=== PATIENT | male | born 1985 | race Caucasian/White ===

== ENCOUNTER 2017-11-17 11:03 | Emergency (ER) | payer MEDICAID, SELFPAY ==
[2017-11-17 11:44] VITALS: BP 176/98; PULSE 110; RESP 20; TEMP 36.6; O2SAT 97; BMI 31.5
--- NOTE | 2017-11-17 12:21 | HMH.EDUTC ---
[facility] [place] Clinical Impression: Viral upper respiratory illness Disposition: Home, Self-Care Condition on Discharge: Good Instructions: DI for Cough -- Adult Additional Instructions: * Monitor Temp. Tylenol and/or Ibuprofen as needed. ER if fever is no less than 101 despite alternating Tylenol and Ibuprofen * Encourage fluids, water, Gatorade, powerade, pedialyte if /toddler/or child * Warm salt water gargles for throat irritation *Warm fluids *Sore throat lozenges *Sleep elevated *humidifier or vaporizer Lots of rest Increase fluids, water, Gatorade, powerade *Flonase 2 sprays each nostril daily but may take 2-3 days to notice improvement with it * Follow up IMMEDIATELY for new or worsening of symptoms OR no noticeable improvement over the next 48-72 hours. 911 immediately for any life threatening symptoms such as chest pain or difficulty breathing Prescriptions: Dextromethorphan Polistirex [Delsym] 10 ml PO Q12H PRN #350 terri.er.12h PRN Reason: Cough Fluticasone Propionate [Flonase 50mcg nasal spray 16gm] 2 spr NS DAILY #1 bottle Loratadine [Claritin 10mg Tablet] 10 mg PO DAILY #30 tab Forms: Work/School Release Time of Disposition: 12:37 Medical Decision Making - Medical Records Medical records reviewed: Yes: I reviewed the patient's medical records. - Ihsan Inquiry Pt receiving controlled substance: No Ihsan was queried for this patient: No Vital Signs: 11/17/17 11:44 Temperature 97.9 F Temperature Source Temporal Artery Scan Pulse Rate [Right] 110 H Respiratory Rate 20 Blood Pressure [Right Arm] 176/98 Blood Pressure Mean [Right Arm] 124 Blood Pressure Source [Right Arm] Automatic Cuff 02 Sat by Pulse Oximetry 97 Oxygen Delivery Method Room Air - Lab Data Lab results reviewed: Yes: I reviewed the patient's lab results. [facility] [place] - General Stated complaint: Bad Cough,Stuffy Time Seen by Provider: 11/17/17 12:00 Mode of Arrival: Ambulatory Source of Information: Patient Limitations: No Limitations Description of Symptoms (Recalled from Triage Doc. by RN): COUGH, CONGESTION X5 DAYS HEENT Symptoms (Recalled from RN notes): Yes Resp Symptoms (Recalled from RN notes): No Skin Symptoms (Recalled from RN notes): No MS Symptoms (Recalled from RN notes): No Functional Status (Recalled from RN notes): N - History of Present Illness Provider Complaint: Patient states that he has been having cough, nasal congestion and sinus headache on and off for about 5 days State that throat is sore and irritated. Reports clear drainage from nose States that at times he has a headache/pressure like feeling on his right forehead area State that he has not had any fever and has not taken any over the counter medication for sore throat or sinuses State that he missed several doses of his blood pressure medication and just started back this morning - Related Data Previous Rx's Medication Instructions Recorded Dextromethorphan Polistirex 10 ml PO Q12H PRN #350 terri.er.12h 11/17/17 [Delsym] Fluticasone Propionate [Flonase 2 spr NS DAILY #1 bottle 11/17/17 50mcg nasal spray 16gm] Loratadine [Claritin 10mg Tablet] 10 mg PO DAILY #30 tab 11/17/17 Allergies Allergy/AdvReac Type Severity Reaction Status Date / Time erythromycin base Allergy Unknown Verified 11/17/17 11:47 [ERYTHROMYCIN BASE] - Worker's Comp Is this a Worker's Comp case?: No [facility] History I have reviewed the patient's past medical history: Yes - Social History Alcohol Intake: never - Psychiatric History Expresses thoughts of harming self/others: None Suicide Plan Description: No Plan ROS Obtained: Yes All systems reviewed & no additional complaints - Constitutional Constitutional: Denies fever(s) - ENT Ears, Nose, Mouth, and Throat: Reports nasal congestion, Reports sore throat - Respiratory Respiratory: Yes cough Physical Exam - General General appearance: alert, in no apparent distress
--- NOTE | 2017-11-17 12:32 | ED_ITS ---
[facility] – [place] Disposition Clinical Impression: Viral upper respiratory illness Disposition: Home, Self-Care Condition on Discharge: Good Instructions: DI for Cough -- Adult Additional Instructions: * Monitor Temp. Tylenol and/or Ibuprofen as needed. ER if fever is no less than 101 despite alternating Tylenol and Ibuprofen * Encourage fluids, water, Gatorade, powerade, pedialyte if /toddler/or child * Warm salt water gargles for throat irritation *Warm fluids *Sore throat lozenges *Sleep elevated *humidifier or vaporizer Lots of rest Increase fluids, water, Gatorade, powerade *Flonase 2 sprays each nostril daily but may take 2-3 days to notice improvement with it * Follow up IMMEDIATELY for new or worsening of symptoms OR no noticeable improvement over the next 48-72 hours. 911 immediately for any life threatening symptoms such as chest pain or difficulty breathing Prescriptions: Dextromethorphan Polistirex [Delsym] 10 ml PO Q12H PRN #350 terri.er.12h PRN Reason: Cough Fluticasone Propionate [Flonase 50mcg nasal spray 16gm] 2 spr NS DAILY #1 bottle Loratadine [Claritin 10mg Tablet] 10 mg PO DAILY #30 tab Forms: Work/School Release Time of Disposition: 12:37 Medical Decision Making - Medical Records Medical records reviewed: Yes: I reviewed the patient's medical records. - Ihsan Inquiry Pt receiving controlled substance: No Ihsan was queried for this patient: No Vital Signs: 11/17/17 11:44 Temperature 97.9 F Temperature Source Temporal Artery Scan Pulse Rate [Right] 110 H Respiratory Rate 20 Blood Pressure [Right Arm] 176/98 Blood Pressure Mean [Right Arm] 124 Blood Pressure Source [Right Arm] Automatic Cuff 02 Sat by Pulse Oximetry 97 Oxygen Delivery Method Room Air - Lab Data Lab results reviewed: Yes: I reviewed the patient's lab results. [facility] [place] HPI - General Stated complaint: Bad Cough,Stuffy Time Seen by Provider: 11/17/17 12:00 Mode of Arrival: Ambulatory Source of Information: Patient Limitations: No Limitations Description of Symptoms (Recalled from Triage Doc. by RN): COUGH, CONGESTION X5 DAYS HEENT Symptoms (Recalled from RN notes): Yes Resp Symptoms (Recalled from RN notes): No Skin Symptoms (Recalled from RN notes): No MS Symptoms (Recalled from RN notes): No Functional Status (Recalled from RN notes): N - History of Present Illness Provider Complaint: Patient states that he has been having cough, nasal congestion and sinus headache on and off for about 5 days State that throat is sore and irritated. Reports clear drainage from nose States that at times he has a headache/pressure like feeling on his right forehead area State that he has not had any fever and has not taken any over the counter medication for sore throat or sinuses State that he missed several doses of his blood pressure medication and just started back this morning - Related Data Previous Rx's Medication Instructions Recorded Dextromethorphan Polistirex 10 ml PO Q12H PRN #350 terri.er.12h 11/17/17 [Delsym] Fluticasone Propionate [Flonase 2 spr NS DAILY #1 bottle 11/17/17 50mcg nasal spray 16gm] Loratadine [Claritin 10mg Tablet] 10 mg PO DAILY #30 tab 11/17/17 Allergies Allergy/AdvReac Type Severity Reaction Status Date / Time erythromycin base Allergy Unknown Verified 11/17/17 11:47 [ERYTHROMYCIN BASE] - [place]
[2017-11-17 12:40] VITALS: BP 176/98; PULSE 90; RESP 20; TEMP 36.6
== END 2017-11-17 12:49 | disposition home or self-care (01) ==
PROVIDERS: Emergency Provider Nurse Practitioner; Family Provider Family Medicine
DX: J06.9 Acute upper respiratory infection, unspecified (principal); Z88.1 Allergy status to other antibiotic agents
CPT/HCPCS: 99201

== ENCOUNTER 2017-11-21 12:52 | Emergency (ER) | payer MEDICAID, SELFPAY ==
[2017-11-21 13:09] VITALS: BP 148/73; PULSE 86; RESP 20; TEMP 36.7; O2SAT 97; BMI 31.5
--- NOTE | 2017-11-21 13:43 | HMH.EDUTC ---
[facility] [place]: Acute bronchitis Qualifiers: Bronchitis organism: other organism Qualified Code(s): J20.8 - Acute bronchitis due to other specified organisms Disposition: Home, Self-Care Condition on Discharge: Good Instructions: DI for Acute Bronchitis Additional Instructions: * start antibiotic today. Be sure to complete entire prescription even if feeling better. * Monitor Temp. FU if fever develops * humidifier/vaporizer/hot steamy shower * Inhaler every 4-6 hours as needed like we discussed. If unsure how to use it, ask pharmacist to demonstrate how. Should help open airways and improve cough, wheezing, shortness of breath. * Mucinex during the day for your cough and cough suppressant only at night. Be sure to drink lots of water. Insurance may not cover a prescription of mucinex. Might be cheaper to get 400mg tablets and take 2 tablets morning, midday and evening all with lots of water. * You can use the previously prescribed cough syrup at night. * Start steroid today. Helps with inflammation therefore, cough and wheezing. Follow directions on package. Rvwd side effects. Pt reports they have taken them before. Prescriptions: Albuterol Sulfate [Albuterol HFA Inhaler] 1 - 2 puffs IH Q4-6H PRN #1 inh PRN Reason: Shortness Of Breath Or Wheezing Amoxicillin [Amoxicillin 875MG Tab] 875 mg PO Q12H #20 tab predniSONE [Deltasone 10mg tablet] 10 mg PO DAILY #5 tab Referrals: Francisco Lr MD [Primary Care Provider] - (Follow up IMMEDIATELY for new or worsening symptoms OR no noticeable improvement over the next 72 hours. 911 for difficulty breathing.) Time of Disposition: 13:55 Medical Decision Making - Medical Records Medical records reviewed: Yes: I reviewed the patient's medical records. MR Comment: prior visit last week - Ihsan Inquiry Pt receiving controlled substance: No Vital Signs: 11/21/17 13:09 11/21/17 13:58 Temperature 98.1 F 98.1 F Temperature Source Oral Oral Pulse Rate 80 Pulse Rate [Right Brachial] 86 Respiratory Rate 20 18 Blood Pressure 138/70 Blood Pressure [Right Arm] 148/73 Blood Pressure Mean [Right Arm] 98 Blood Pressure Source Automatic Cuff Blood Pressure Source [Right Arm] Automatic Cuff Blood Pressure Position Sitting Blood Pressure Position [Right Arm] Sitting 02 Sat by Pulse Oximetry 97 Oxygen Delivery Method Room Air Room Air [facility] [place] - General Stated complaint: Cough; Time Seen by Provider: 11/21/17 13:43 Mode of Arrival: Family Vehicle Source of Information: Patient Limitations: No Limitations Description of Symptoms (Recalled from Triage Doc. by RN): c/o COUGH SINCE THRUSDAY AND WAS SEEN HERE IN [facility] HEENT Symptoms (Recalled from RN notes): Yes Resp Symptoms (Recalled from RN notes): Yes Skin Symptoms (Recalled from RN notes): No MS Symptoms (Recalled from RN notes): No Functional Status (Recalled from RN notes): N/A - History of Present Illness Provider Complaint: c/o persisting cough. Worse now w/ laughing, exertion, deep breaths. Started around 9 days ago w/ head symptoms . moved into chest and was seen here 5 days ago. Dx URI. PRescribed claritin, delsym and flonase. No better. Cough nonprod. Denies SOA. Mild intermittent wheezing, worse at night. No fevers. Nonsmoker. No known sick contacts. - Related Data Previous Rx's Medication Instructions Recorded Dextromethorphan Polistirex 10 ml PO Q12H PRN #350 terri.er.12h 11/17/17 [Delsym] Fluticasone Propionate [Flonase 2 spr NS DAILY #1 bottle 11/17/17 50mcg nasal spray 16gm] Loratadine [Claritin 10mg Tablet] 10 mg PO DAILY #30 tab 11/17/17 Albuterol Sulfate [Albuterol HFA 1 - 2 puffs IH Q4-6H PRN #1 inh 11/21/17 Inhaler] Amoxicillin [Amoxicillin 875MG Tab] 875 mg PO Q12H #20 tab 11/21/17 predniSONE [Deltasone 10mg tablet] 10 mg PO DAILY #5 tab 11/21/17 Allergies Allergy/AdvReac Type Severity Reaction Status Date / Time erythromycin base Allergy Unknown V
[2017-11-21 13:58] VITALS: BP 138/70; PULSE 80; RESP 18; TEMP 36.7; O2SAT 98
== END 2017-11-21 13:59 | disposition home or self-care (01) ==
PROVIDERS: Emergency Provider Nurse Practitioner Family; Family Provider Family Medicine; PCP Emergency Medicine
DX: J20.8 Acute bronchitis due to other specified organisms (principal); E78.5 Hyperlipidemia, unspecified; I10 Essential (primary) hypertension; F17.210 Nicotine dependence, cigarettes, uncomplicated
CPT/HCPCS: 99201

== ENCOUNTER → 2018-01-06 10:08 | Outpatient (REF) | payer MEDICAID, SELFPAY ==
[2018-01-06 13:26] LABS: Basophils # 0.1 K/mm3 (0-0.2); Basophils % 0.8 % (0.1-2.0); Eosinophils # 0.1 K/mm3 (0.0-0.4); Eosinophils % 0.9 % (0.1-12.0); Hematocrit 48.2 % (42.0-52.0); Hemoglobin 16.7 g/dL (14.1-18.0); Lymphocytes # 2.3 K/mm3 (0.7-4.5); Lymphocytes % 34.5 K/mm3 (10-50); Mean Corpuscular HGB Conc 34.6 g/dL (31.8-35.4); Mean Corpuscular Hemoglobin 32.3 pg (27.0-31.2); Mean Corpuscular Volume 93.2 fl (80-94); Mean Platelet Volume 7.5 fl (7.4-10.4); Monocytes # 0.3 K/mm3 (0.1-1.0); Monocytes % 4.6 % (1.7-9.3); Neutrophils # 3.9 K/mm3 (1.8-7.8); Neutrophils % 59.2 % (37.0-80.0); Platelet Count 292 K/mm3 (142-424); Red Blood Count 5.18 M/mm3 (4.60-6.20); Red Cell Distribution Width 13.1 % (11.5-17.5); White Blood Count 6.6 K/mm3 (4.8-10.8)
[2018-01-06 13:41] LABS: Alanine Aminotransferase 65 U/L (12-78); Albumin Level 4.3 gm/dL (3.4-5.0); Alkaline Phosphatase 116 U/L (46-116); Anion Gap 13.4 mEq/L (5-15); Bilirubin,Total 0.3 mg/dL (0.2-1.0); Blood Urea Nitrogen 12 mg/dL (7-18); Calcium 9.4 mg/dL (8.5-10.1); Carbon Dioxide 27 mmol/L (21.0-32.0); Chloride 100 mmol/L (98-107); Chol/HDL Ratio 9.1 (1-3.5); Cholesterol 308 mg/dL (140-200); Creatinine,Serum 1.03 mg/dL (0.70-1.30); Estimated Glomerular Filt Rate 85 ml/min (>60); Free T4 (Free Thyroxine) 0.83 ng/dl (0.76-1.46); GFR (African American) 103 ML/MIN (>60); Globulin 4.5 gm/dl (1.3-3.2); HDL Cholesterol 34 mg/dL (27-67); Potassium 4.4 mmoL/L (3.5-5.1); Sodium 136 mmol/L (136-145); Thyroid Stimulating Hormone 2.35 uIU/ml (0.358-3.740); Total Protein,Serum 8.8 gm/dL (6.4-8.2)
[2018-01-06 14:57] LABS: Aspartate Amino Transferase 45 U/L (15-37); Triglycerides 562 mg/dL (30-200)
[2018-01-06 14:58] LABS: Glucose 122 mg/dL (74-106)
[2018-01-09 06:11] LABS: Vitamin D 25 Hydroxy 20.5 ng/mL (30.0-100.0)
== END ==
LOC: LAB 10:08
PROVIDERS: Visit Provider Emergency Medicine
DX: R53.83 Other fatigue (principal); R09.81 Nasal congestion
CPT/HCPCS: 80053; 80061; 82652; 84439; 84443; 85025

== ENCOUNTER → 2018-01-18 12:58 | Outpatient (CLI) | payer MEDICAID, SELFPAY | PROVIDERS: PCP Emergency Medicine; Visit Provider Emergency Medicine | DX: G47.33 Obstructive sleep apnea (adult) (pediatric) (principal) | CPT/HCPCS: 95806 ==

== ENCOUNTER → 2018-02-06 10:03 | Outpatient (CLI) | payer MEDICAID, SELFPAY ==
--- NOTE | 2018-02-06 10:04 | CA_ITS ---
PROCEDURE: 2-D M-mode and color Doppler study INDICATIONS FOR THE TEST: Chest pain COPD Heart Murmur Tobacco SmokingDIP Palpitations Fatigue Syncope EdemaX HypertensionXDiabetes Mellitus Rheumatic Fever SOB MAIN ObesityXHyperlipidemiaX Family History HD Additional History MARITO PATIENT INFORMATION HEIGHT: 71 WEIGHT:225 GENDER: Male B/P:163/100 2-D/M-MODE INTERPRETATION: 2-D MEASUREMENTS OBSERVED VALUES IN CMS Right Ventricular Dimension (RVDd) 2.5 Interventricular Septum (Thickness)(IVsd) .9 Left Ventricular Internal Dimensions(LVIDd) 5.1 Left Ventricular Posterior Wall (Thickness)(LVPWd) .9 Aortic Root 3.1 Aortic Cusp Separation 2.1 Left Atrial Dimensions (LAD) 3.5 2D 1. Left atrium is normal size, left ventricle is normal size, there is no concentric left ventricular hypertrophy, visually estimated ejection fraction 55% with no obvious regional wall motion abnormality. 2. The right atrium and right ventricle are normal size and contractility. 3. The aortic, mitral and tricuspid valve are grossly normal. 4. The pulmonic valve is poorly visualized. 5. No significant pericardial effusion noted. DOPPLER INTERROGATION: Doppler interrogation of the aortic, mitral and tricuspid valvular presence of mild mitral and tricuspid regurgitation, tricuspid and jet velocity is insufficient for calculation of the right ventricular systolic pressure, diastolic parameters are within normal range. CONCLUSION: 1. Normal left ventricular size, preserved left ventricular systolic function, visually estimated ejection fraction 55% with no obvious regional wall motion abnormality, diastolic parameters are within normal range. 2. Mild mitral and tricuspid regurgitation 3. No significant pericardial effusion noted.
== END ==
PROVIDERS: Family Provider Family Medicine; PCP Emergency Medicine; Visit Provider Internal Medicine Cardiovascular Disease
DX: I10 Essential (primary) hypertension (principal); E78.5 Hyperlipidemia, unspecified; E55.9 Vitamin D deficiency, unspecified; F17.200 Nicotine dependence, unspecified, uncomplicated; G47.33 Obstructive sleep apnea (adult) (pediatric)
CPT/HCPCS: 93306

== ENCOUNTER → 2019-09-13 16:16 | Outpatient (CLI) | payer MEDICAID, SELFPAY ==
[2019-09-13 16:30] LABS: Basophils # 0.1 K/mm3 (0-0.2); Basophils % 0.8 % (0.1-2.0); Eosinophils # 0.1 K/mm3 (0.0-0.4); Eosinophils % 1.7 % (0.1-12.0); Hematocrit 47.1 % (42.0-52.0); Hemoglobin 15.9 g/dL (14.1-18.0); Lymphocytes # 2.5 K/mm3 (0.7-4.5); Lymphocytes % 31.3 % (10-50); Mean Corpuscular HGB Conc 33.9 g/dL (31.8-35.4); Mean Corpuscular Hemoglobin 31.2 pg (27.0-31.2); Mean Platelet Volume 7.5 fl (7.4-10.4); Monocytes # 0.5 K/mm3 (0.1-1.0); Monocytes % 5.7 % (1.7-9.3); Neutrophils # 4.8 K/mm3 (1.8-7.8); Neutrophils % 60.5 % (37.0-80.0); Platelet Count 322 K/mm3 (142-424); Red Blood Count 5.11 M/mm3 (4.60-6.20); Red Cell Distribution Width 12.8 % (11.5-17.5); White Blood Count 7.9 K/mm3 (4.8-10.8)
--- NOTE | 2019-09-13 16:34 | ECG_ITS ---
APPROVED REPORT Exam: Resting ECG HR:87 bpm ECG Measurements Heart Rate 87 AXES DE 142 P 25 QRSd 78 QRS 4 QT 362 T 7 QTc 435 <Conclusion> Normal sinus rhythm with sinus arrhythmia Normal ECG Electronically signed by : Jacob Alford, 09/15/2019 19:09:40
[2019-09-13 17:07] LABS: Alanine Aminotransferase 104 U/L (12-78); Albumin Level 4.2 gm/dL (3.4-5.0); Anion Gap 11.9 mEq/L (5-15); Aspartate Amino Transferase 48 U/L (15-37); Bilirubin,Total 0.4 mg/dL (0.2-1.0); Blood Urea Nitrogen 13 mg/dL (7-18); Carbon Dioxide 29 mmol/L (21.0-32.0); Chloride 100 mmol/L (98-107); Creatinine,Serum 1.03 mg/dL (0.70-1.30); Estimated Glomerular Filt Rate 84 ml/min (>60); GFR (African American) 101 ML/MIN (>60); Globulin 3.8 gm/dl (1.3-3.2); Glucose 93 mg/dL (74-106); Potassium 3.9 mmoL/L (3.5-5.1); Sodium 137 mmol/L (136-145)
[2019-09-13 17:08] LABS: Albumin/Globulin Ratio 1.1 (1.1-1.8); Alkaline Phosphatase 98 U/L (46-116)
== END ==
PROVIDERS: Visit Provider Otolaryngology
DX: Z01.818 Encounter for other preprocedural examination (principal); H65.93 Unspecified nonsuppurative otitis media, bilateral; H66.001 Acute suppurative otitis media without spontaneous rupture of ear drum, right ear; H91.93 Unspecified hearing loss, bilateral
CPT/HCPCS: 36415; 80053; 85025; 93005

== ENCOUNTER 2020-12-06 13:19 | Emergency (ER) | payer OTHER, SELFPAY ==
[2020-12-06 13:36] VITALS: BP 149/82; PULSE 86; RESP 18; TEMP 37; O2SAT 100; BMI 34.0
--- NOTE | 2020-12-06 13:52 | HMH.EDUTC ---
[facility] [place]ression: Low back pain Qualifiers: Chronicity: acute Back pain laterality: left Sciatica presence: with sciatica Sciatica laterality: sciatica of left side Qualified Code(s): M54.42 - Lumbago with sciatica, left side Disposition: Home, Self-Care Condition on Discharge: Good Instructions: Exercise May Reduce Risk of Low Back Pain, DI for Low Back Pain Additional Instructions: follow up with pcp if no improvement tylenol or motrin for pain Prescriptions: predniSONE [Prednisone 20mg Tab] 20 mg PO BID #10 tab Prescription Printed Referrals: Francisco Lr MD [Primary Care Provider] - Time of Disposition: 13:57 Medical Decision Making - Ihsan Inquiry Pt receiving controlled substance: No Vital Signs: 12/06/20 13:36 Temperature 98.6 F Temperature Source Oral Pulse Rate [Right Brachial] 86 Respiratory Rate 18 Blood Pressure [Right Arm] 149/82 H Blood Pressure Mean [Right Arm] 104 Blood Pressure Source [Right Arm] Automatic Cuff Blood Pressure Position [Right Arm] Sitting 02 Sat by Pulse Oximetry 100 Oxygen Delivery Method Room Air [facility] [place] General Chief complaint: [facility] Stated complaint: Lt knee tingling/numbness Time Seen by Provider: 12/06/20 13:52 Mode of Arrival: Ambulatory Source of Information: Patient Limitations: No Limitations Description of Symptoms (Recalled from Triage Doc. by RN): PATIENT C/O TINGLING, NUMBNESS, AND BURNING IN LEFT THIGH X 1 MONTH HEENT Symptoms (Recalled from RN notes): No Resp Symptoms (Recalled from RN notes): No Skin Symptoms (Recalled from RN notes): No MS Symptoms (Recalled from RN notes): Yes Functional Status (Recalled from RN notes): WNL - History of Present Illness Provider Complaint: 35 yr old male presents for low back pain with numbness and pain radiating down let leg. pt states it started over 1 month ago but has become worse since transfering to a new department at work recently. no issues with b/b - Related Data Home Medications Medication Instructions Recorded Confirmed lisinopriL [Lisinopril] 10 mg PO DAILY 12/06/20 12/06/20 Previous Rx's Medication Instructions Recorded predniSONE [Prednisone 20mg 20 mg PO BID #10 tab 12/06/20 Tab] Allergies Allergy/AdvReac Type Severity Reaction Status Date / Time erythromycin base Allergy Unknown Verified 08/19/20 15:22 [ERYTHROMYCIN BASE] - Worker's Comp Is this a Worker's Comp case?: No [facility] History - Hepatitis A Screen Drug use history?: No High risk sexual behaviors?: No History of sexually transmitted infection?: No Currently employed?: No Childcare worker?: No Do you have indoor plumbing?: Yes Do you have electricity?: Yes Attestation statement:: This patient has been screened for Hepatitis A risk factors. I have reviewed the patient's past medical history: Yes Medical History: Reports:: Hyperlipidemia, Hypertension Denies:: Cancer, Chronic Obstructive Pulmonary Disease (COPD), Diabetes Mellitus Type 1, Diabetes Mellitus Type 2, Internal Pacemaker, MRSA, Seizures Other Medical History: Reports: Other. Denies: Blood Transfusion Reaction Comment: HYPERTENSION. HYPERLIPIDEMIA. SLEEP APNEA Laterality Cases: Bilateral: Myringotomy (Ear Tubes) Other Surgeries: Yes: No Previous Surgery, Appendectomy. No: Pacemaker Amputation: No Fractures: Yes (rt middle finger) Comment: EAR TUBES IN BOTH EARS, EAR WAX REMOVAL---09/27/19 - Social History Smoking Status: Never smoker Tobacco Type: smokeless tobacco # Packs/Day (cigarettes): 0 Alcohol Intake: never Alcohol Intake Frequency:: a few times a month Substance Use Type: denies use Occupational Status: other Housing: house Household Members: spouse, family Family Hx:: No significant family history ROS Obtained: Yes Systems reviewed as appropriate & no additional complaints - Constitutional Constitutional: Reports system reviewed and no additional complaints, e
[2020-12-06 13:58] VITALS: BP 149/82; PULSE 86; RESP 18; TEMP 37; O2SAT 100
== END 2020-12-06 14:02 | disposition home or self-care (01) ==
PROVIDERS: Emergency Provider Nurse Practitioner Family; PCP Emergency Medicine
DX: M54.42 Lumbago with sciatica, left side (principal); I10 Essential (primary) hypertension; E78.5 Hyperlipidemia, unspecified; Z79.899 Other long term (current) drug therapy
CPT/HCPCS: 99202; G0463

== ENCOUNTER → 2021-08-20 12:46 | Outpatient (CLI) | payer OTHER, SELFPAY | PROVIDERS: Visit Provider Nurse Practitioner | DX: U07.1 COVID-19 (principal) | CPT/HCPCS: C9803; U0003; U0005 ==

== ENCOUNTER 2021-08-23 10:45 | Emergency (ER) | payer OTHER, SELFPAY ==
[2021-08-23 11:37] VITALS: BP 179/105; PULSE 82; RESP 18; TEMP 36.8; O2SAT 96; BMI 34.2
--- NOTE | 2021-08-23 11:49 | HMH.EDUTC ---
[facility] [place] Clinical Impression: COVID-19 Right otitis media Qualifiers: Otitis media type: suppurative Chronicity: acute Recurrence: non-recurrent Spontaneous tympanic membrane rupture: without spontaneous rupture Qualified Code(s): H66.001 - Acute suppurative otitis media without spontaneous rupture of ear drum, right ear Disposition: Home, Self-Care Condition on Discharge: Good Instructions: Middle Ear Infection, DI for COVID-19 (Suspected or Confirmed ), Preventing the Spread of Coronavirus Discharge Instructions Additional Instructions: Drink plenty of fluids. Take tylenol or ibuprofen for pain or fever. Take the medications as directed. Follow up with your regular doctor. GO TO THE ER FOR ANY WORSENING SYMPTOMS With your history of high blood pressure, don't take the pseudoephedrine or any other decongestant for more than 1 to 2 days. These medications would help your ear pain, but cause your blood pressure to go up. Don't mess up and take any other products with pseudoephedrine in them if you take the pseudoephedrine that we prescribed. Don't start the oral steroids until tomorrow, since you had the shot here today. Prescriptions: Pseudoephedrine HCl 30 mg PO Q6HP PRN #30 tab PRN Reason: Congestion Transmission Status: Received by [id number] Amoxicillin/Potassium Clav [Augmentin 875-125 Tablet] 1 tab PO Q12H 10 Days #20 tab Transmission Status: Received by [id number] methylPREDNISolone [Medrol] 4 mg PO DIRECTED 6 Days #21 packet Transmission Status: Received by [id number] Referrals: Francisco Lr MD [Primary Care Provider] - Time of Disposition: 12:30 Medical Decision Making - Medical Records Medical records reviewed: No: I reviewed the patient's medical records. - Ihsan Inquiry Pt receiving controlled substance: No Vital Signs: 08/23/21 11:37 08/23/21 12:33 Temperature 98.3 F 98.3 F Temperature Source Oral Pulse Rate 82 Pulse Rate [Left] 82 Respiratory Rate 18 18 Blood Pressure 179/105 H Blood Pressure [Right Arm] 179/105 H Blood Pressure Mean [Right Arm] 129 02 Sat by Pulse Oximetry 96 Orders (Tests/Meds): ED MEDICATIONS Discontinued Medications Generic Name Dose Route Start Last Admin Trade Name Freq PRN Reason Stop Dose Admin Methylprednisolone Sodium Succinate 125 mg 08/23/21 12:26 08/23/21 12:44 Methylprednisolone Sod Succ 125mg Vial IM 08/23/21 12:27 125 mg ONCE ONE Administration [facility] [place] HPI - General Stated complaint: cough, right ear pain Time Seen by Provider: 08/23/21 11:50 Mode of Arrival: Ambulatory Source of Information: Patient Limitations: No Limitations Description of Symptoms (Recalled from Triage Doc. by RN): pt c/o a R ear ache. HEENT Symptoms (Recalled from RN notes): Yes (R ear ache) Resp Symptoms (Recalled from RN notes): No Skin Symptoms (Recalled from RN notes): No MS Symptoms (Recalled from RN notes): No Functional Status (Recalled from RN notes): wnl - History of Present Illness Provider Complaint: He was diagnosed with covid-19 3 days ago. He states that is breathing is doing good other than coughing a lot. But he is having severe right ear pain. He has a history of getting ear infections frequently. He has t-tubes because of this, but he thinks that his right one is no in place any more. His left ear hurts, but not near as bad as his right. - Related Data Previous Rx's Medication Instructions Recorded predniSONE [Prednisone 20mg 20 mg PO BID #10 tab 12/06/20 Tab] lisinopril 10 mg tablet See Rx Instructions .ROUTE 04/10/21 .COMPLEX #90 tablet Amoxicillin/Potassium Clav 1 tab PO Q12H 10 Days #20 tab 08/23/21 [Augmentin 875-125 Tablet] Pseudoephedrine HCl 30 mg PO Q6HP PRN #30 tab 08/23/21 methylPREDNISolone [Medrol] 4 mg PO DIRECTED 6 Days #21 08/23/21 packet Allergies Allergy/AdvReac Type Severity Reaction Status Date / Time e
[2021-08-23 12:33] VITALS: BP 179/105; PULSE 82; RESP 18; TEMP 36.8
== END 2021-08-23 12:45 | disposition home or self-care (01) ==
PROVIDERS: Emergency Provider Nurse Practitioner Family; PCP Emergency Medicine
DX: U07.1 COVID-19 (principal); H66.001 Acute suppurative otitis media without spontaneous rupture of ear drum, right ear; E78.5 Hyperlipidemia, unspecified; I10 Essential (primary) hypertension
CPT/HCPCS: 96372; 99202; G0463

== ENCOUNTER 2021-11-10 10:31 | Emergency (ER) | payer OTHER, SELFPAY ==
[2021-11-10 12:43] VITALS: BP 156/91; PULSE 84; RESP 20; O2SAT 100; BMI 33.3
--- NOTE | 2021-11-10 13:08 | HMH.EDUTC ---
[facility] [place]: Laceration Disposition: Home, Self-Care Condition on Discharge: Good Instructions: Laceration Repair, DI for Laceration Repair Additional Instructions: Suture instructions: You have required stitches today. Please read the following instructions so you know how to care for them: 1. Keep wound area dry for the first 24 hours. 2 May clean gently with mild soap and water, after 48 hours to prevent crusting over suture knots. 3. You may shower if your provider gives permission but do not take a bath until the skin is healed.. 4. Never leave a wet dressing or Band-Aid on your stitches as this allows bacteria to reach the area and may cause infection. Band-aids can cause the wound to sweat and not recommended to wear for long periods of time Watch for signs of infection: Increasing redness, tenderness or warmth around the suture site Unusual swelling around the site Appearance of pus around each suture or any red streaks Fever If you develop any of the above signs or symptoms of infection, Follow up with Family Physician immediately 5. Suture removal in _7-10___days 6. Return to [facility] or follow up with family doctor for removal. This can be done by any medical provider during regular hours on Tuesday through Tuesday, by appointment. Referrals: Francisco Lr MD [Primary Care Provider] - As needed Time of Disposition: 13:45 Medical Decision Making - Ihsan Inquiry Pt receiving controlled substance: No Ihsan was queried for this patient: No Vital Signs: 11/10/21 12:43 Pulse Rate [Left] 84 Respiratory Rate 20 Blood Pressure [Right Arm] 156/91 H Blood Pressure Mean [Right Arm] 112 02 Sat by Pulse Oximetry 100 Medical Decision Narrative: Patient declined recommended tdap and xray [facility] [place] - General Stated complaint: wc 11/10, left pointer finger laceration Time Seen by Provider: 11/10/21 13:08 Mode of Arrival: Ambulatory Source of Information: Patient Limitations: No Limitations Description of Symptoms (Recalled from Triage Doc. by RN): pt states around 1000 he cut the pad of his L index finger with an electric saw at work. pts finger is still bleeding minimally. the lac spans accross the pad of the finger to almost each side of the nail. pt unsure when his last tetnus vaccine was. pt refuses a tetnus vaccine. HEENT Symptoms (Recalled from RN notes): No Resp Symptoms (Recalled from RN notes): No Skin Symptoms (Recalled from RN notes): Yes MS Symptoms (Recalled from RN notes): No Functional Status (Recalled from RN notes): wnl - History of Present Illness Provider Complaint: Patient state that he was using an electric knife like instrument at work when he accidently cut the pad of his left index finger States that he immediately cleaned the wound, applied pressure an they put a bandage on it and sent him to get it checked out - Related Data Previous Rx's Medication Instructions Recorded predniSONE [Prednisone 20mg 20 mg PO BID #10 tab 12/06/20 Tab] lisinopril 10 mg tablet See Rx Instructions .ROUTE 04/10/21 .COMPLEX #90 tablet Amoxicillin/Potassium Clav 1 tab PO Q12H 10 Days #20 tab 08/23/21 [Augmentin 875-125 Tablet] Pseudoephedrine HCl 30 mg PO Q6HP PRN #30 tab 08/23/21 methylPREDNISolone [Medrol] 4 mg PO DIRECTED 6 Days #21 08/23/21 packet Allergies Allergy/AdvReac Type Severity Reaction Status Date / Time erythromycin base Allergy Unknown Verified 08/19/20 15:22 [ERYTHROMYCIN BASE] - Worker's Comp Is this a Worker's Comp case?: Yes Is this an [facility] Worker's Comp?: No Is this a [facility] Worker's Comp?: No H History - Hepatitis A Screen Drug use history?: No High risk sexual behaviors?: No History of sexually transmitted infection?: No Currently employed?: No Childcare worker?: No Do you have indoor plumbing?: Yes Do you have electricity?: Yes Attestation statement:: This patient has been screened for Hepatitis A ris
--- NOTE | 2021-11-10 13:45 | PC.NURSE ---
pt refuses tetnus vaccine
[2021-11-10 13:59] VITALS: BP 156/91; PULSE 84; RESP 20; TEMP 36.8
== END 2021-11-10 14:00 | disposition home or self-care (01) ==
PROVIDERS: Emergency Provider Nurse Practitioner; PCP Emergency Medicine
DX: S61.211A Laceration without foreign body of left index finger without damage to nail, initial encounter (principal); W27.0XXA Contact with workbench tool, initial encounter; Y92.69 Other specified industrial and construction area as the place of occurrence of the external cause; Y99.0 Civilian activity done for income or pay
CPT/HCPCS: 12001; 96372; 99213; G0463

== ENCOUNTER 2021-11-20 12:36 | Emergency (ER) | payer OTHER, SELFPAY ==
[2021-11-20 12:36] VITALS: BP 136/78; PULSE 86; RESP 16; TEMP 36.6; O2SAT 100; BMI 33.3
[2021-11-20 12:40] VITALS: BP 136/78; PULSE 86; RESP 16; TEMP 36.6; O2SAT 100
== END 2021-11-20 12:41 | disposition home or self-care (01) ==
LOC: UTC 12:39
PROVIDERS: Emergency Provider Nurse Practitioner; PCP Emergency Medicine
DX: S61.211D Laceration without foreign body of left index finger without damage to nail, subsequent encounter (principal)

== ENCOUNTER 2022-03-08 17:19 | Emergency (ER) | payer OTHER, SELFPAY ==
[2022-03-08 17:40] VITALS: BP 139/86; PULSE 72; RESP 19; TEMP 36.7; O2SAT 100; BMI 29.8
--- NOTE | 2022-03-08 18:14 | HMH.EDUTC ---
[facility] [place] Clinical Impression: Stye Qualifiers: Laterality: right Eyelid: lower Qualified Code(s): H00.012 - Hordeolum externum right lower eyelid Disposition: Home, Self-Care Condition on Discharge: Good Instructions: Hordeolum, DI for Hordeolum, Azithromycin Additional Instructions: Use ointment as prescribed Follow up with you eye doctor if no improvement or any worsening of symptoms Return if needed Straight to ER if any life threatening symptoms Warm compress to right eye 3 times daily Prescriptions: Neomycin/Polymyxin B/Dexametha [Maxitrol Eye Ointment] 1 applic OP TID 7 Days #3.5 gm Transmission Status: Sent to [facility] Referrals: Francisco Lr MD [Primary Care Provider] - As needed Forms: Work/School Release Time of Disposition: 18:34 Medical Decision Making - Ihsan Inquiry Pt receiving controlled substance: No Ihsan was queried for this patient: No Vital Signs: 03/08/22 17:40 03/08/22 18:23 Temperature 98.0 F 98.0 F Temperature Source Oral Pulse Rate 72 Pulse Rate [Left Brachial] 72 Respiratory Rate 19 19 Blood Pressure 139/86 Blood Pressure [Left Arm] 139/86 Blood Pressure Mean [Left Arm] 103 Blood Pressure Source [Left Arm] Automatic Cuff Blood Pressure Position [Left Arm] Sitting 02 Sat by Pulse Oximetry 100 Oxygen Delivery Method Room Air Medical Decision Narrative: Spoke with Dr Max will prescribe Maxitrol and have him follow up if no improvement or if any worsening of symptoms [facility] [place] - General Stated complaint: R eye pain Time Seen by Provider: 03/08/22 18:14 Mode of Arrival: Ambulatory Source of Information: Patient Limitations: No Limitations Description of Symptoms (Recalled from Triage Doc. by RN): PATIENT C/O POSSIBLE PINK EYE TO RIGHT EYE X 1 HOUR HEENT Symptoms (Recalled from RN notes): Yes Resp Symptoms (Recalled from RN notes): No Skin Symptoms (Recalled from RN notes): No MS Symptoms (Recalled from RN notes): No Functional Status (Recalled from RN notes): WNL - History of Present Illness Provider Complaint: Patient states that a couple hours ago he started having redness and drainage in his right eye States that felt like there was something in it and he rubbed it and it got irritated State that his told him that she thought he may have pink eye so he came in to get checked - Related Data Home Medications Medication Instructions Recorded Confirmed lisinopriL [Lisinopril] 10 mg PO DAILY 03/08/22 03/08/22 Previous Rx's Medication Instructions Recorded Neomycin/Polymyxin B/Dexametha 1 applic OP TID 7 Days #3.5 gm 03/08/22 [Maxitrol Eye Ointment] Allergies Allergy/AdvReac Type Severity Reaction Status Date / Time erythromycin base Allergy Unknown Verified 08/19/20 15:22 [ERYTHROMYCIN BASE] - Worker's Comp Is this a Worker's Comp case?: No [facility] History - Hepatitis A Screen Attestation statement:: This patient has been screened for Hepatitis A risk factors. I have reviewed the patient's past medical history: Yes Medical History: Reports:: Hyperlipidemia, Hypertension Denies:: Cancer, Chronic Obstructive Pulmonary Disease (COPD), Diabetes Mellitus Type 1, Diabetes Mellitus Type 2, Internal Pacemaker, MRSA, Seizures Other Medical History: Reports: Other. Denies: Blood Transfusion Reaction Comment: HYPERTENSION. HYPERLIPIDEMIA. SLEEP APNEA Laterality Cases: Bilateral: Myringotomy (Ear Tubes) Other Surgeries: Yes: No Previous Surgery, Appendectomy. No: Pacemaker Amputation: No Fractures: Yes (rt middle finger) Comment: EAR TUBES IN BOTH EARS, EAR WAX REMOVAL---09/27/19 - Social History Smoking Status: Never smoker Tobacco Type: smokeless tobacco # Packs/Day (cigarettes): 0 Alcohol Intake: never Alcohol Intake Frequency:: a few times a month Substance Use Type: denies use Occupational Status: other Housing: house Household Members: spouse, family Family Hx:: No significant family hi
[2022-03-08 18:23] VITALS: BP 139/86; PULSE 72; RESP 19; TEMP 36.7; O2SAT 100
== END 2022-03-08 18:39 | disposition home or self-care (01) ==
PROVIDERS: Emergency Provider Nurse Practitioner; PCP Emergency Medicine
DX: H00.012 Hordeolum externum right lower eyelid (principal)
CPT/HCPCS: 99212; G0463

== ENCOUNTER 2022-07-07 16:53 | Emergency (ER) | payer OTHER, SELFPAY ==
[2022-07-07 18:05] VITALS: BP 148/82; PULSE 62; RESP 20; TEMP 36.7; O2SAT 99; BMI 32.9
--- NOTE | 2022-07-07 18:16 | EXP.UTC ---
Discharge Plan Disposition Patient Disposition: Home, Self-Care Condition: Good Prescriptions Prescriptions: New amoxicillin 875 mg tablet 875 mg PO Q12H Qty: 20 0RF No Action lisinopril 10 MG tablet 10 mg PO DAILY Rx Instructions: TAKE ONE TABLET BY MOUTH EVERY DAY Referrals Follow up/Referrals: Francisco Lr MD [Primary Care Provider] - See instructions Activity Restrictions/Add. Instructions Additional Instructions/Restrictions: Take medication as prescribed Follow up with your Family Doctor if no improvement or any worsening of symptoms Return if needed Straight to ER if any life threatening symptoms Clinical Impressions Clinical Impression: Otitis media Stand Alone Forms Stand Alone Forms: Work/School Release Instructions Patient Instructions: Middle Ear Infection, Ear Infections (Alternative Therapy), Amoxicillin Discharge ED Provider: Leslie Scott [facility] General Stated complaint: ear pain Mode of Arrival: Ambulatory Source of Information: Patient Limitations: No Limitations Time Seen by Provider: 07/07/22 18:16 Description of Symptoms (Recalled from Triage Doc. by RN): PATIENT C/O RIGHT EAR PAIN THAT STARTED TODAY HEENT Symptoms (Recalled from RN notes): Yes Resp Symptoms (Recalled from RN notes): No Skin Symptoms (Recalled from RN notes): No MS Symptoms (Recalled from RN notes): No Functional Status (Recalled from RN notes): WNL History of Present Illness Provider Complaint: Patient states that he has been having pain on and off in his right ear for a little while now States that he use to have tubes and not sure if they area still in there or not States that today he started having severe pain in his right ear and felt like he was having a heart beat in it States that this evening it was still hurting so he came in to get it checked out Related Data Home Medications Medication Instructions Recorded Confirmed lisinopril 10 mg tablet 10 mg PO DAILY Hypertension 03/08/22 07/07/22 Previous Rx's Medication Instructions Recorded amoxicillin 875 mg tablet 875 mg PO Q12H #20 tabs 07/07/22 Allergies Allergy/AdvReac Type Severity Reaction Status Date / Time erythromycin base Allergy Unknown Verified 03/11/22 14:45 [ERYTHROMYCIN BASE] Worker's Comp Is this a Worker's Comp case?: No [facility] Medical History (Updated 07/07/22 @ 18:28 by Leslie Scott APRN) Essential hypertension Hyperlipidemia Hypertension Vitamin D deficiency (~01/09/18) Surgical History (Updated 07/07/22 @ 18:14 by Promise Gillespie RN) History of appendectomy History of tympanostomy tube placement Social History (Updated 07/07/22 @ 18:14 by Promise Gillespie RN) Smoking Status: Never smoker alcohol intake: never substance use type: denies use current occupational status: other Travel in the last 8 weeks: None household members: spouse and family housing: house current occupation: [employer] current occupational exposures/hazards: No caffeine: Yes ROS Obtained: Yes All systems reviewed & no additional complaints except as documented and Yes Systems reviewed as appropriate & no additional complaints except as documented Constitutional Constitutional: Reports system reviewed and no additional complaints, except as documented and Reports as per HPI ENT Ears, Nose, Mouth, and Throat: Reports system reviewed and no additional complaints, except as documented, Reports as per HPI and Reports otalgia Cardiovascular Cardiovascular: Reports system reviewed and no additional complaints, except as documented and Reports as per HPI Respiratory Respiratory: Reports system reviewed and no additional complaints, except as documented and Reports as per HPI Gastrointestinal Gastrointestingal: Reports system reviewed and no additional complaints, except as documented and as per HPI Physical Exam General General appearance: alert and in no apparent di
[2022-07-07 18:31] VITALS: BP 148/82; PULSE 62; RESP 20; TEMP 36.7; O2SAT 99
== END 2022-07-07 18:39 | disposition home or self-care (01) ==
PROVIDERS: Emergency Provider Nurse Practitioner; PCP Emergency Medicine
DX: H66.91 Otitis media, unspecified, right ear (principal); I10 Essential (primary) hypertension; E78.5 Hyperlipidemia, unspecified; E55.9 Vitamin D deficiency, unspecified; Z79.899 Other long term (current) drug therapy; Z88.0 Allergy status to penicillin; Z88.1 Allergy status to other antibiotic agents; Z88.3 Allergy status to other anti-infective agents
CPT/HCPCS: 99213; G0463

== ENCOUNTER 2023-08-01 18:29 | Emergency (ER) | payer SELFPAY ==
--- NOTE | 2023-08-01 18:49 | EXP.UTC ---
Discharge Plan Disposition Patient Disposition: Home, Self-Care Condition: Good Prescriptions Prescriptions: New methylprednisolone 4 mg Tablets,Dose Pack 4 mg PO DIRECTED Qty: 21 0RF amoxicillin [amoxicillin] 875 mg tablet 875 mg PO Q12H Qty: 20 0RF Referrals Follow up/Referrals: Pete Valentin DO [Primary Care Provider] - See instructions Activity Restrictions/Add. Instructions Additional Instructions/Restrictions: Drink plenty of fluids. Take tylenol or ibuprofen for pain or fever. Take the medications as directed. Follow up with your regular doctor. GO TO THE ER FOR ANY WORSENING SYMPTOMS Clinical Impressions Clinical Impression: Left otitis media, Torticollis Instructions Patient Instructions: Middle Ear Infection, DI for Torticollis Discharge ED Provider: Adam Cardoza [facility] General Stated complaint: pain in left side of neck Time Seen by Provider: 08/01/23 18:49 History of Present Illness Provider Complaint: He c/o left ear pain and pain in his neck below his left ear for the past 2 days. He denies any fever/chills. Related Data Previous Rx's Medication Instructions Recorded amoxicillin 875 mg tablet 875 mg PO Q12H #20 tabs 08/01/23 methylprednisolone 4 mg tablets in 4 mg PO DIRECTED #21 tabs 08/01/23 a dose pack Allergies Allergy/AdvReac Type Severity Reaction Status Date / Time erythromycin base Allergy Unknown Verified 08/01/23 19:18 [ERYTHROMYCIN BASE] [facility] Disclaimer: The information contained in this section may have been updated after the patient was seen, as this information can be updated by other users. Medical History Essential hypertension Hyperlipidemia Hypertension Vitamin D deficiency (~01/09/18) Surgical History History of appendectomy History of tympanostomy tube placement Social History Smoking Status: Never smoker alcohol intake: never substance use type: denies use current occupational status: other Travel in the last 8 weeks: None household members: spouse and family housing: house current occupation: [employer] current occupational exposures/hazards: No caffeine: Yes ROS Obtained: Yes All systems reviewed & no additional complaints except as documented Constitutional Constitutional: Denies chills, Reports fever(s) and Reports poor appetite Eyes Eyes: Denies eye discharge ENT Ears, Nose, Mouth, and Throat: Denies ear discharge, Reports otalgia, Denies hearing loss, Denies sinus pain and Reports sore throat Cardiovascular Cardiovascular: Denies chest pain and Denies dyspnea Respiratory Respiratory: Denies chest congestion, Reports cough and Denies dyspnea Gastrointestinal Gastrointestingal: Denies abdominal pain, diarrhea, nausea or vomiting Musculoskeletal Musculoskeletal: Denies arthralgias Integumentary/Breasts Skin/Breast: Denies rash Physical Exam General General appearance: alert and in no apparent distress Head Head exam: atraumatic, normocephalic and normal inspection Eye Eye exam: Present normal appearance; Absent PERRL or EOMI ENT ENT exam: Present mucous membranes moist and normal external ear exam Expanded ENT Exam TM/Canal exam: Bilateral TM: erythema, bulging and effusion Nose exam: Absent sinus tenderness Nasal speculum exam: Bilateral: normal Mouth exam: Present normal external inspection and other; Absent drooling Teeth exam: Present normal inspection Throat exam: Present tonsillar erythema and tonsillomegaly Neck Neck exam: Present normal inspection, full ROM and trachea midline; Absent tenderness, meningismus or lymphadenopathy Chest Chest inspection: Present normal inspection and symmetric chest wall rise; Absent tenderness Respiratory Respiratory exam: Present normal lung sounds bilaterally; Absent
[2023-08-01 19:00] VITALS: BP 156/92; PULSE 111; RESP 18; TEMP 36.8; O2SAT 97; BMI 32.6
[2023-08-01 20:07] VITALS: BP 156/92; PULSE 111; RESP 18; TEMP 36.8; O2SAT 97
== END 2023-08-01 20:07 | disposition home or self-care (01) ==
PROVIDERS: Emergency Provider Nurse Practitioner Family; PCP Internal Medicine
DX: H66.92 Otitis media, unspecified, left ear (principal); M43.6 Torticollis; M54.2 Cervicalgia; E78.5 Hyperlipidemia, unspecified; I10 Essential (primary) hypertension
CPT/HCPCS: 99212; 99214; G0463

== ENCOUNTER → 2023-08-16 10:04 | Outpatient (CLI) | payer SELFPAY ==
[2023-08-16 18:01] LABS: Influenza A, PCR Not Detected (NotDetected); Influenza B, PCR Not Detected (NotDetected)
[2023-08-16 19:17] LABS: Coronavirus 19, PCR Detected (NotDetected)
== END ==
PROVIDERS: PCP Family Medicine; Visit Provider Family Medicine
DX: R05.9 Cough, unspecified (principal); R09.81 Nasal congestion; R52 Pain, unspecified; U07.1 COVID-19
CPT/HCPCS: 87636

== ENCOUNTER 2023-12-19 10:40 | Emergency (ER) | payer SELFPAY ==
[2023-12-19 10:55] VITALS: BP 153/93; PULSE 98; RESP 18; TEMP 36.4; O2SAT 100; BMI 32.1
--- NOTE | 2023-12-19 10:56 | ED_ITS ---
Discharge Plan Disposition Patient Disposition: Home, Self-Care Condition: Good Prescriptions Prescriptions: New methylprednisolone 4 mg Tablets,Dose Pack 4 mg PO DIRECTED 6 Days Qty: 21 0RF Rx Instructions: Take 1 pack as directed for 6 days amoxicillin-pot clavulanate 875-125 mg Tablet 1 tab PO Q12H Qty: 20 0RF levocetirizine [Xyzal] 5 mg tablet 5 mg PO DAILY Qty: 30 5RF No Action lisinopril 10 mg tablet 10 mg PO DAILY Referrals Follow up/Referrals: Pete Valentin DO [Primary Care Provider] - See instructions Activity Restrictions/Add. Instructions Additional Instructions/Restrictions: Drink plenty of fluids. Take tylenol or ibuprofen for pain or fever. Take the medications as directed. Follow up with your regular doctor. GO TO THE ER FOR ANY WORSENING SYMPTOMS I recommend that you take a medication for allergies. I sent in a prescription for xyzal for this. Clinical Impressions Clinical Impression: Bilateral otitis media Stand Alone Forms Stand Alone Forms: Work/School Release Instructions Patient Instructions: Middle Ear Infection, Levocetirizine, Methylprednisolone, Amoxicillin and Clavulanic Acid Discharge ED Provider: Adam Cradoza [facility] General Stated complaint: both ears feel stopped up Time Seen by Provider: 12/19/23 10:56 History of Present Illness Provider Complaint: He states that for the past 5 days he has had worsening bi lateral ear pain and pressure. He has also had sinus congestion also. He states that he has a history of getting ear infections frequently. He did have bilateral t-tubes, but one fell out 3 months ago and the other fell out 2 weeks ago. Related Data Home Medications Medication Instructions Recorded Confirmed lisinopril 10 mg tablet 10 mg PO DAILY 08/16/23 12/19/23 Previous Rx's Medication Instructions Recorded amoxicillin 875 mg-potassium 1 tab PO Q12H #20 tabs 12/19/23 clavulanate 125 mg tablet levocetirizine 5 mg tablet (Xyzal) 5 mg PO DAILY #30 tabs 12/19/23 methylprednisolone 4 mg tablets in 4 mg PO DIRECTED 6 days #21 tabs 12/19/23 a dose pack Allergies Allergy/AdvReac Type Severity Reaction Status Date / Time erythromycin base Allergy Unknown Verified 12/19/23 11:10 [ERYTHROMYCIN BASE] [facility] Disclaimer: The information contained in this section may have been updated after the patient was seen, as this information can be updated by other users. Medical History (Updated 12/19/23 @ 11:35 by Adam Cardoza APRN) Torticollis Left otitis media Bilateral impacted cerumen Bilateral otitis media Otitis media Hypertension Stye Encounter for removal of sutures Laceration Right otitis media COVID-19 Low back pain Vitamin D deficiency (~01/09/18) Essential hypertension Hyperlipidemia Surgical History History of tympanostomy tube placement History of appendectomy Social History Smoking Status: Never smoker alcohol intake: never substance use type: denies use current occupational status: other Travel in the last 8 weeks: None household members: spouse and family housing: house current occupation: [employer] current occupational exposures/hazards: No caffeine: Yes ROS Obtained: Yes All systems reviewed & no additional complaints except as documented Constitutional Constitutional: Denies chills, Reports fever(s) and Reports poor appetite Eyes Eyes: Denies eye discharge ENT Ears, Nose, Mouth, and Throat: Denies ear discharge, Reports otalgia, Denies hearing loss, Denies sinus pain and Reports sore throat Cardiovascular Cardiovascular: Denies chest pain and Denies dyspnea Respiratory Respiratory: Denies chest congestion, Reports cough and Denies dyspnea Gastrointestinal Gastrointestingal: Denies abdominal pain, diarrhea, nausea or vomiting Musculoskeletal Musculoskeletal: Denies arthralgias Integumentary/Breasts Skin/Breast: Denies rash Physical Exam General General appearance: alert and in no apparent distress Head Head exam: atraumatic, normocephalic and normal inspection Eye Eye exam: Present normal appearance; Absent PERRL or EOMI ENT ENT exam: Present mucous membranes moist and normal external ear exam Expanded ENT Exam TM/Canal exam: Bilateral TM: erythema, bulging and effusion Nose exam: Absent sinus tenderness Nasal speculum exam: Bilateral: normal Mouth exam: Present normal external inspection and other; Absent drooling Teeth exam: Present normal inspection Throat exam: Present tonsillar erythema and tonsillomegaly Neck Neck exam: Present normal inspection, full ROM and trachea midline; Absent tenderness, meningismus or lymphadenopathy Chest Chest inspection: Present normal inspection and symmetric chest wall rise; Absent tenderness Respiratory Respiratory exam: Present normal lung sounds bilaterally; Absent respiratory distress, wheezes or stridor Cardiovascular Cardiovascular exam: Present regular rate, normal rhythm and normal heart sounds; Absent tachycardia or irregular rhythm Abdominal Exam Abdominal exam: Present soft and normal bowel sounds; Absent distention, tenderness, guarding, rebound or rigidity Extremities Exam Extremities exam: Present normal inspection and normal capillary refill; Absent tenderness, joint swelling or calf tenderness Back Exam Back exam: Present normal inspection and full ROM; Absent tenderness, CVA tenderness (R) or CVA tenderness (L) Neurological Exam Neurological exam: Present alert, oriented X3, CN II-XII intact, normal gait and reflexes normal; Absent motor sensory deficit Psychiatric Psychiatric exam: Present normal affect and normal mood Skin Skin exam: Present warm, dry, intact and normal color Lymphatic Lymphatic Findings: no adenopathy Medical Decision Making Medical Records Medical records reviewed: No I reviewed the patient's medical records. Ihsan Inquiry Pt receiving controlled substance: No
[2023-12-19 11:56] VITALS: BP 153/93; PULSE 98; RESP 18; TEMP 36.4; O2SAT 100
== END 2023-12-19 11:15 | disposition home or self-care (01) ==
PROVIDERS: Emergency Provider Nurse Practitioner Family; PCP Internal Medicine
DX: H66.93 Otitis media, unspecified, bilateral (principal); R09.81 Nasal congestion
CPT/HCPCS: 99212; 99214; G0463

== ENCOUNTER 2024-06-27 13:42 | Emergency (ER) | payer SELFPAY ==
[2024-06-27 14:18] VITALS: BP 165/109; PULSE 100; RESP 20; TEMP 36.8; O2SAT 96; BMI 31.4
--- NOTE | 2024-06-27 14:19 | EXP.UTC ---
Discharge Plan Disposition Patient Disposition: Home, Self-Care Condition: Good Prescriptions Prescriptions: New cephalexin 500 mg capsule 500 mg PO QID 10 Days Qty: 40 0RF mupirocin 2 % ointment 1 applic topical TID 7 Days Qty: 15 0RF No Action lisinopril 10 mg tablet See Rx Instructions .ROUTE .COMPLEX Qty: 90 3RF Dose Instruction: TAKE ONE TABLET BY MOUTH EVERY DAY Rx Instructions: TAKE ONE TABLET BY MOUTH EVERY DAY Referrals Follow up/Referrals: Provider,Referral, MD [Primary Care Provider] - See instructions Activity Restrictions/Add. Instructions Additional Instructions/Restrictions: Keep the wound clean and dry. Keep a dressing on it if you are going to be getting it dirty. Watch the wounds for signs of infection, such as worsening redness, swelling, drainage, fever. etc. Take tylenol or ibuprofen for pain. Follow up with your regular doctor. Follow up with your primary care physician or return here in 3 days to have the wound rechecked. GO TO THE ER FOR ANY WORSENING SYMPTOMS OR CONCERNS. 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 Earlier today the door to the sand blasting machine malfunction and it allowed some of the blasting media to come out of the machine and hit him on his left forearm. He has an area of bruising with multiple puncture wound on his inner forearm just below the antecubital area. His tetanus immunization is not up to date. He denies any other injuries or complaints. Related Data Previous Rx's ?Medication ?Instructions ?Recorded lisinopril 10 mg tablet See Rx Instructions .Route 01/27/24 .COMPLEX #90 tabs cephalexin 500 mg capsule 500 mg PO QID 10 days #40 caps 06/27/24 mupirocin 2 % topical ointment 1 applic topical TID 7 days #15 06/27/24 grams Allergies Allergy/AdvReac Type Severity Reaction Status Date / Time erythromycin base Allergy Unknown Verified 12/19/23 11:10 [ERYTHROMYCIN BASE] [facility] Disclaimer: The information contained in this section may have been updated after the patient was seen, as this information can be updated by other users. Medical History (Updated 06/27/24 @ 15:38 by Adam Cardoza APRN) Torticollis Left otitis media Bilateral impacted cerumen Bilateral otitis media Otitis media Hypertension Stye Encounter for removal of sutures Laceration Right otitis media COVID-19 Low back pain Vitamin D deficiency (~01/09/18) Essential hypertension Hyperlipidemia Surgical History History of tympanostomy tube placement History of appendectomy Social History Smoking Status: Never smoker alcohol intake: never substance use type: denies use current occupational status: other Travel in the last 8 weeks: None household members: spouse and family housing: house current occupation: [employer] current occupational exposures/hazards: No caffeine: Yes ROS Obtained: Yes All systems reviewed & no additional complaints except as documented Constitutional Constitutional: Denies chills and Denies fever(s) Eyes Eyes: Denies eye discharge ENT Ears, Nose, Mouth, and Throat: Denies dizziness, Denies otalgia and Denies sore throat Cardiovascular Cardiovascular: Denies chest pain Respiratory Respiratory: Denies shortness of breath, Denies chest congestion, Denies cough, Denies stridor and Denies wheezing Gastrointestinal Gastrointestingal: Denies nausea or vomiting Musculoskeletal Musculoskeletal: Reports system reviewed and no additional complaints, except as documented and Denies arthralgias Integumentary/Breasts Skin/Breast: Reports as per HPI Neurologic Neurologic: Denies dizziness and Denies paresthesias Allergic/Immunologic Allergic/Immunologic: Denies wheezing Physical Exam General General appearance: alert and in no apparent distress Head Head exam: atraumatic, normocephalic and normal inspection Eye Eye exam: Present normal appearance, PERRL and EOMI ENT ENT exam: Present normal exam, normal oropharynx, mucous membranes moist, TM's normal bilaterally and normal external ear exam Neck Neck exam: Present normal inspection, full ROM and trachea midline; Absent meningismus or lymphadenopathy Chest Chest inspection: Present normal inspection and symmetric chest wall rise; Absent tenderness Respiratory Respiratory exam: Present normal lung sounds bilaterally; Absent respiratory distress Cardiovascular Cardiovascular exam: Present regular rate and normal rhythm; Absent JVD Abdominal Exam Abdominal exam: Present soft and normal bowel sounds; Absent distention, tenderness or guarding Extremities Exam Extremities exam: Present normal inspection, full ROM and normal capillary refill; Absent calf tenderness Back Exam Back exam: Present normal inspection; Absent tenderness Neurological Exam Neurological exam: Present alert and oriented X3 Psychiatric Psychiatric exam: Present normal affect and normal mood Skin Skin exam: Present other (there is an area of ecchymosis on his forearm that measures 3 cm X 4 cm. There are multiple small puncture wounds noted in the area. no bleeding noted. ) Lymphatic Lymphatic Findings: no adenopathy Medical Decision Making Medical Records Medical records reviewed: No I reviewed the patient's medical records. Screening: Per USPSTF and CDC recommendations, given the prevalence of disease in our region, it is our hospital?s policy to screen for HIV and viral Hepatitis for all patients aged 18 and over and those with ongoing risk factors. Ihsan Inquiry Pt receiving controlled substance: No Medical Decision Narrative: I had the ER physician to come over and examine the wound and to review the x-rays. Her plan of care that she recomended was followed.
--- NOTE | 2024-06-27 14:29 | XR_ITS ---
PROCEDURE INFORMATION: Exam: XR Left Forearm Exam date and time: 06/27/2024 2:26 PM Age: 38 years old Clinical indication: Injury or trauma; Other: Sand blasting injury; Other: ? Foreign body; Additional info: Metal sandblasting injury, foreign body TECHNIQUE: Imaging protocol: Radiologic exam of the left forearm. Views: 2 views. Total images: 2 COMPARISON: No relevant prior studies available. FINDINGS: Bones/joints: No evidence of acute fracture or dislocation. Soft tissues: Soft tissues are within normal limits. Punctate radiopaque foreign bodies overlie the proximal forearm anteriorly and medially. IMPRESSION: 1. No evidence of acute fracture or dislocation. 2. Punctate radiopaque foreign bodies overlie the proximal forearm anteriorly and medially.
[2024-06-27] MEDS: TET/DIPHTH/PERT-ADULT 0.5ML SYRINGE 0.5 ML IM (15:04)
[2024-06-27 15:42] VITALS: BP 165/109; PULSE 100; RESP 20; TEMP 36.8
== END 2024-06-27 15:43 | disposition home or self-care (01) ==
PROVIDERS: Emergency Provider Nurse Practitioner Family
DX: S51.842A Puncture wound with foreign body of left forearm, initial encounter (principal); W31.89XA Contact with other specified machinery, initial encounter
CPT/HCPCS: 73090; 90471; 90715; 99213; G0381